=== PATIENT | female | born 1990 | race African-American/Black ===

== ENCOUNTER 2017-12-14 20:39 | Emergency (ER) | payer OTHER ==
[~2017-12-14] VITALS: Ht 165.1 cm; Wt 68.0 kg
--- NOTE | 2017-12-14 20:48 | NUR ---
called pt in wr, no response
--- NOTE | 2017-12-14 21:00 | NUR ---
called pt in wr, no response
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
--- NOTE | 2017-12-15 00:30 | NUR ---
RADIOLOGY AT BEDSIDE FOR XR
--- NOTE | 2017-12-15 01:01 | NUR ---
Patient discharged to home in stable condition. Written and verbal after care instructions given. Patient verbalizes understanding of instruction. ambulatory with a steady gait
[2017-12-15 01:03] VITALS: BP 128/64
== END 2017-12-15 01:04 | disposition home or self-care (01) ==
LOC: ER 20:43
DX: M54.6 Pain in thoracic spine (principal); E11.9 Type 2 diabetes mellitus without complications; V49.49XA Driver injured in collision with other motor vehicles in traffic accident, initial encounter; Y93.89 Activity, other specified; Y92.413 State road as the place of occurrence of the external cause; Y99.8 Other external cause status
CPT/HCPCS: 72074; 99284; A4606; Z7610